=== PATIENT | male | born 1950 | race Caucasian/White ===

== ENCOUNTER 2020-03-28 10:06 | Outpatient (CLI) | payer MEDICARE | END 2020-03-28 23:59 | disposition home or self-care (01) | LOC: STAR 10:06 | PROVIDERS: ATTEND Internal Medicine | DX: Z02.9 Encounter for administrative examinations, unspecified (principal) ==

== ENCOUNTER 2020-04-01 09:58 | Day surgery (SDC) | payer MEDICARE, BC ==
[~2020-04-01] VITALS: Ht 185.4 cm; Wt 102.0 kg
[2020-04-01] MEDS ORDERED: METOCLOPRAMIDE 5 MG/ML, 2ML IVPush ONE (10:30)
[2020-04-01] MEDS ORDERED: FAMOTIDINE 20 MG/2 ML IVPush ONE (10:30)
[2020-04-01] MEDS ORDERED: METF500T17 PO (10:35)
[2020-04-01] MEDS ORDERED: UBID100C24 PO (10:35)
[2020-04-01] MEDS ORDERED: LUTE1CAP PO (10:35)
[2020-04-01] MEDS ORDERED: VALS80TA3 PO (10:35)
[2020-04-01] MEDS ORDERED: HYDR12.517 PO (10:35)
[2020-04-01] MEDS ORDERED: PANT40TA6 PO (10:35)
[2020-04-01] MEDS ORDERED: MULT-464 PO (10:35)
[2020-04-01] MEDS ORDERED: ATOR20TA37 PO (10:35)
[2020-04-01] MEDS ORDERED: CHLORHEXIDINE 15 ML UDC ONE (10:48)
[2020-04-01] MEDS ORDERED: LACTATED RINGERS 1,000 ML IV SCH (10:52)
[2020-04-01] MEDS ORDERED: CHLORHEXIDINE 15 ML UDC MM ONE (11:00)
[2020-04-01 11:24] LABS: CHLORIDE 104 mmol/L (98-107)
[2020-04-01 11:30] LABS: ALANINE AMINOTRANSFERASE 17 U/L (12-78); ALBUMIN 2.9 g/dL (3.4-5.0); ALKALINE PHOSPHATASE 79 U/L (45-117); ANION GAP 8 mmol/L (5-15); BILIRUBIN,TOTAL 0.6 mg/dL (0.2-1.0); CREATININE 0.66 mg/dL (0.7-1.3); TOTAL PROTEIN 7.4 g/dL (6.4-8.2)
[2020-04-01] MEDS ORDERED: MIDAZOLAM 1 MG/ML, 2ML ONE (11:43)
[2020-04-01] MEDS ORDERED: FENTANYL PF 250 MCG/5ML ONE (11:43)
[2020-04-01] MEDS ORDERED: ROCURONIUM 10MG/ML,5ML ONE (12:59)
[2020-04-01] MEDS ORDERED: LABETALOL 5MG/ML, 20ML IV PRN (13:00)
[2020-04-01] MEDS ORDERED: HYDROmorphone 1 MG/ML, 1ML INJ IVPush PRN (13:00)
[2020-04-01] MEDS ORDERED: ONDANSETRON 2MG/ML, 2ML IVPush PRN (13:00)
[2020-04-01] MEDS ORDERED: ALBUTEROL/IPRATROPIUM 2.5MG/0.5MG, 3 ML NPPB PRN (13:00)
[2020-04-01] MEDS ORDERED: MEPERIDINE/PF 25MG/0.5ML IVPush PRN (13:00)
[2020-04-01] MEDS ORDERED: hydrALAzine 20 MG/ML, 1ML IV PRN (13:00)
[2020-04-01] MEDS ORDERED: PROMETHAZINE 25 MG/ML, 1ML IVPush PRN (13:00)
[2020-04-01] MEDS ORDERED: OXYcodone 5 MG/5 ML ORAL.SOL UDC PO PRN (13:00)
[2020-04-01] MEDS ORDERED: FENTANYL PF 100 MCG/2ML IV PRN (13:00)
[2020-04-01] MEDS ORDERED: SUCCINYLCHOLINE 20 MG/ML, 10ML ONE (13:07)
[2020-04-01] MEDS ORDERED: PROPOFOL 10 MG/ML, 20ML ONE (13:07)
[2020-04-01] MEDS ORDERED: DEXAMETHASONE 4 MG/ML, 1ML ONE (13:07)
[2020-04-01] MEDS ORDERED: ONDANSETRON 2MG/ML, 2ML ONE (13:31)
== END 2020-04-01 15:30 | disposition home or self-care (01) ==
LOC: OUT 09:58
PROVIDERS: ATTEND Internal Medicine
DX: R91.8 Other nonspecific abnormal finding of lung field (principal); Z20.828 Contact with and (suspected) exposure to other viral communicable diseases; C34.11 Malignant neoplasm of upper lobe, right bronchus or lung; R59.1 Generalized enlarged lymph nodes; I10 Essential (primary) hypertension; E11.9 Type 2 diabetes mellitus without complications; M19.90 Unspecified osteoarthritis, unspecified site; F17.211 Nicotine dependence, cigarettes, in remission; Z79.84 Long term (current) use of oral hypoglycemic drugs; Z79.899 Other long term (current) drug therapy
CPT/HCPCS: 31623; 31624; 31627; 31628; 31652; 36415; 80053; 87635; 88172; 88173; 88177; 88305; 88341; 88342; 93005; J0330; J1100; J2250; J2405; J2704; J2765; J3010; J3490; J7120; 31629

== ENCOUNTER → 2020-04-13 | Outpatient (CLI) | payer MEDICARE, BC ==
[~2020-04-13] MED LIST: ATOR20TA37 PO; GADOTERATE 10 MMOL/20 ML SYR ONE; HYDR12.517 PO; LUTE1CAP PO; METF500T17 PO; MULT-464 PO; PANT40TA6 PO; UBID100C24 PO; VALS80TA3 PO
== END | disposition home or self-care (01) ==
LOC: CFH 10:39
PROVIDERS: ATTEND Internal Medicine
DX: C34.11 Malignant neoplasm of upper lobe, right bronchus or lung (principal); G31.89 Other specified degenerative diseases of nervous system; J34.1 Cyst and mucocele of nose and nasal sinus
CPT/HCPCS: 70553; A9575

== ENCOUNTER 2020-05-03 09:54 | Day surgery (SDC) | payer MEDICARE, BC ==
[~2020-05-03 09:54] MED LIST changes: -GADOTERATE 10 MMOL/20 ML SYR ONE
[2020-05-03] MEDS ORDERED: FLUMAZENIL 0.1 MG/1 ML, 5ML ONE (11:29)
[2020-05-03] MEDS ORDERED: MIDAZOLAM 1 MG/ML, 5ML ONE (11:29)
[2020-05-03] MEDS ORDERED: NALOXONE 1 MG/ML, 2ML ONE (11:29)
[2020-05-03] MEDS ORDERED: FENTANYL PF 100 MCG/2ML ONE ×2 (11:29)
== END 2020-05-03 13:15 | disposition home or self-care (01) ==
LOC: OUT 09:54 → EDSTATUS 12:00 → OUT 13:15
PROVIDERS: ATTEND Specialist
DX: C34.11 Malignant neoplasm of upper lobe, right bronchus or lung (principal); R59.0 Localized enlarged lymph nodes; E11.9 Type 2 diabetes mellitus without complications; I10 Essential (primary) hypertension; K21.9 Gastro-esophageal reflux disease without esophagitis; E78.00 Pure hypercholesterolemia, unspecified; Z79.84 Long term (current) use of oral hypoglycemic drugs; Z79.899 Other long term (current) drug therapy; Z87.891 Personal history of nicotine dependence; Z86.010 Personal history of colon polyps; Z98.890 Other specified postprocedural states; Z83.3 Family history of diabetes mellitus; Z83.42 Family history of familial hypercholesterolemia; Z82.49 Family history of ischemic heart disease and other diseases of the circulatory system
CPT/HCPCS: 38505; 77012; 88305; 99156; 99157; J2250; J3010; J2310

== ENCOUNTER 2020-09-20 11:52 | Day surgery (SDC) | payer MEDICARE, BC ==
[~2020-09-20] VITALS: Ht 182.9 cm; Wt 94.4 kg
[2020-09-20 12:36] VITALS: BP 128/80
[2020-09-20] MEDS ORDERED: CEFAZOLIN PMX 1GM/50ML 50 ML IV ONE (13:00)
[2020-09-20] MEDS ORDERED: LIDOCAINE 1%, 10ML ONE (13:25)
[2020-09-20] MEDS ORDERED: LIDOCAINE 1%, 20ML ONE (13:25)
[2020-09-20] MEDS ORDERED: FLUMAZENIL 0.1 MG/1 ML, 5ML ONE (13:32)
[2020-09-20] MEDS ORDERED: NALOXONE 1 MG/ML, 2ML ONE (13:32)
[2020-09-20] MEDS ORDERED: MIDAZOLAM 1 MG/ML, 5ML ONE ×2 (13:32→14:22)
[2020-09-20] MEDS ORDERED: FENTANYL PF 100 MCG/2ML ONE ×2 (13:32→14:21)
== END 2020-09-20 16:00 | disposition home or self-care (01) ==
LOC: RAD 11:52
PROVIDERS: ATTEND Specialist
DX: C34.11 Malignant neoplasm of upper lobe, right bronchus or lung (principal); I10 Essential (primary) hypertension; K21.9 Gastro-esophageal reflux disease without esophagitis; Z79.84 Long term (current) use of oral hypoglycemic drugs; Z79.899 Other long term (current) drug therapy; Z87.891 Personal history of nicotine dependence; Z98.890 Other specified postprocedural states
CPT/HCPCS: 36561; 76937; 77001; 99156; 99157; C1788; C1894; J0690; J1642; J2250; J3010; J2310